=== PATIENT | male | born 1965 | race African-American/Black ===

== ENCOUNTER 2025-08-01 10:44 | Emergency (ER) | payer OTHER ==
[~2025-08-01] VITALS: Ht 175.3 cm; Wt 78.0 kg
[~2025-08-01 10:44] MED LIST: APIX5TAB MT
[2025-08-01 10:46] VITALS: PULSE 89; O2SAT 97
[2025-08-01 10:49] VITALS: BP 135/82; RESP 18; TEMP 36.8; O2SAT 98
[2025-08-01 11:13] LABS: BASOPHILS % 0.7 % (0.0-2.0); EOSINOPHILS % 3.5 % (0.0-5.0); HEMATOCRIT. 41.6 % (42.0-52.0); HEMOGLOBIN. 13.7 g/dL (14.0-18.0); LYMPHOCYTES % 44.1 % (20.0-50.0); MEAN PLATELET VOLUME 8.5 fl (7.4-10.4); MONOCYTES % 10.9 % (2.0-8.0); NEUTROPHILS % 40.8 % (40.0-76.0); PLATELET 183 x1000/uL (130-400); RED BLOOD CELL COUNT 4.76 mill/uL (4.7-6.1); RED CELL DISTRIBUTION WIDTH 13.5 % (11.6-14.6)
[2025-08-01 11:31] LABS: CREATININE 1.2 mg/dL (0.6-1.3); UREA NITROGEN BLOOD 6 mg/dL (9-23)
== END 2025-08-01 15:22 | disposition home or self-care (01) ==
LOC: ER 10:44
DX: R79.89 Other specified abnormal findings of blood chemistry (principal); Z86.718 Personal history of other venous thrombosis and embolism; Z79.01 Long term (current) use of anticoagulants
CPT/HCPCS: 36415; 80048; 85025; 85379; 93005; 93970; 99284